=== PATIENT | female | born 1960 | race Caucasian/White ===

== ENCOUNTER → 2016-11-06 | Outpatient (CLI) | payer OTHER ==
[~2016-11-06] MED LIST: ASPI81TA28 PO; CALCTAB5 PO; FERR1TAB61; LEVO150T PO; NIFE60TA57 PO; VITA600C4
[2016-11-06 13:07] LABS: THYROID STIMULATING HORMONE 0.87 uIu/ml (0.300-4.500)
== END | disposition home or self-care (01) ==
LOC: C.LABPVFM 07:46
PROVIDERS: ATTEND Internal Medicine Endocrinology, Diabetes & Metabolism
DX: E03.9 Hypothyroidism, unspecified (principal)

== ENCOUNTER → 2017-02-24 | Outpatient (CLI) | payer OTHER ==
[2017-02-24 12:56] LABS: BLOOD UREA NITROGEN 14 mg/dl (7-18); BUN/CREATININE RATIO 18.2 (10-20); CALCIUM 9.1 mg/dl (8.5-10.1); CARBON DIOXIDE 28 mmol/L (21-32); CHLORIDE 106 mmol/L (98-107); CREATININE 0.74 mg/dl (0.60-1.20); GLUCOSE 85 mg/dl (70-99); POTASSIUM 3.4 mmol/L (3.5-5.1); SODIUM 143 mmol/L (136-145)
[2017-02-24 13:09] LABS: THYROID STIMULATING HORMONE 0.606 uIu/ml (0.300-4.500)
== END | disposition home or self-care (01) ==
LOC: C.LABPVFM 07:37
PROVIDERS: ATTEND Nurse Practitioner
DX: I10 Essential (primary) hypertension (principal); R20.2 Paresthesia of skin; E03.9 Hypothyroidism, unspecified

== ENCOUNTER → 2017-04-20 | Outpatient (CLI) | payer OTHER | END | disposition home or self-care (01) | LOC: C.LABPVFM 07:53 | PROVIDERS: ATTEND Internal Medicine Endocrinology, Diabetes & Metabolism | DX: E03.9 Hypothyroidism, unspecified (principal) ==

== ENCOUNTER → 2017-04-22 | Outpatient (CLI) | payer OTHER ==
[2017-04-22 12:49] LABS: CHOLESTEROL/HDL RATIO 2.8
== END | disposition home or self-care (01) ==
LOC: C.LABPVFM 07:45
PROVIDERS: ATTEND Nurse Practitioner
DX: R03.0 Elevated blood-pressure reading, without diagnosis of hypertension (principal); Z13.220 Encounter for screening for lipoid disorders

== ENCOUNTER 2017-11-23 08:07 | Emergency (ER) | payer OTHER ==
[~2017-11-23] VITALS: Ht 170.2 cm; Wt 75.2 kg
[~2017-11-23 08:07] MED LIST changes: -VITA600C4; +VITA600C4 PO
[2017-11-23 08:19] VITALS: TEMP 37.1; Ht 170.2 cm; Wt 75.2 kg
[2017-11-23 08:20] VITALS: O2SAT 98
[2017-11-23] MEDS ORDERED: SODIUM CHLORIDE 0.9% 1000ML 1,000 ML IV SCH (08:36)
[2017-11-23 08:51] LABS: BASO % 0.3 %; BASO ABS # 0.03 K/uL (0-0.2); EOS % 0.1 %; EOS ABS # 0.01 K/uL (0-0.5); HEMATOCRIT 43.5 % (37-47); HEMOGLOBIN 15.1 g/dL (12.0-16.0); IG# 0.01 K/uL (0.00-0.02); LYMPH % 8.5 %; LYMPH ABS # 0.83 K/uL (1.2-3.4); MEAN CELL VOLUME 85.3 fL (80-100); MEAN CORPUSCULAR HEMOGLOBIN 29.6 pg (25-34); MEAN CORPUSCULAR HGB CONC 34.7 g/dl (32-36); MEAN PLATELET VOLUME 10.7 fL (7.4-10.4); MONO % 3.6 %; MONO ABS # 0.35 K/uL (0.11-0.59); NEUT % 87.4 %; PLATELET COUNT 297 K/uL (130-400); RED CELL DISTRIBUTION WIDTH CV 13.2 % (11.5-14.5); RED CELL DISTRIBUTION WIDTH SD 41.1 fL (36.4-46.3); WHITE BLOOD COUNT 9.73 K/uL (4.8-10.8)
--- NOTE | 2017-11-23 08:59 | DIAGNOSTIC IMAGING REPORT ---
CT OF THE HEAD WITHOUT CONTRAST CLINICAL HISTORY: Stroke. Left sided facial droop and numbness. COMPARISON STUDY: No previous studies for comparison. CT DOSE: 537.48 mGy.cm TECHNIQUE: Helical axial images of the head were obtained without IV contrast. Automated exposure control was utilized for the study. A dose lowering technique was utilized adhering to the principles of ALARA. FINDINGS: No acute intracranial hemorrhage, midline shift or mass effect is present. Brain volume is normal. Ventricular system is normal. The basilar cisterns are patent. There are no extra-axial collections. There are scattered white matter hypodensities. There are no findings to suggest acute dural sinus thrombosis or acute territorial infarct. There are no significant calvarial abnormalities. Visualized portions of the sinuses and the mastoid air cells are clear. IMPRESSION: 1. No acute intracranial findings. 2. Scattered white matter hypodensities which are nonspecific but statistically reflect small vessel disease. Electronically signed by: Beau Izquierdo M.D. 11/23/2017 8:58 AM Dictated Date/Time: 11/23/2017 8:55 AM
[2017-11-23 09:02] LABS: BLOOD UREA NITROGEN 14 mg/dl (7-18); CALCIUM 9.7 mg/dl (8.5-10.1); CARBON DIOXIDE 28 mmol/L (21-32); CREATININE 0.98 mg/dl (0.60-1.20); GLUCOSE 182 mg/dl (70-99); SODIUM 138 mmol/L (136-145)
[2017-11-23 09:07] LABS: CKMB 3.3 ng/ml (0.5-3.6)
--- NOTE | 2017-11-23 09:08 | EMERGENCY ROOM VISIT NOTE ---
History Report prepared by Yoselin: Mervin Ty Under the Supervision of: Dr. Dami Dixon M.D. First contact with patient: 08:25 Chief Complaint: STROKE SYMPTOMS Stated Complaint: LT FACIAL NUMBNESS, DEOOP, HEADACHE. L EAR PAIN Nursing Triage Summary: pt reports left facial droop left ear throbbing bad headache last 2 days, eyes hurt, left side of tongue numb sx started last night at 2000. speech is clear able to ambulate to room b9 from triage History of Present Illness The patient is a 57 year old white female with a past medical history of HTN and hypothyroid who presents to the ED with a cc of constant neurologic symptoms beginning yesterday (about 12 hours ago). Symptoms include left facial numbness (including left side of tongue), left ear pain, and headache. Symptoms began with lip tingling followed by her headache. Negative cough, fevers, chills. No recent medication changes or antibiotic use. No history of Lyme Disease, stroke, migraines, or seizures. No drug or alcohol use. Eating and drinking normally. Urinating and defecating normally. Source of History: patient Onset: about 12 hours ago Position: head (left face) Quality: other (neurologic symptoms) Timing: constant Associated Symptoms: + headache, + numbness, No fevers, No chills, No cough Note: Symptoms: left ear pain Review of Systems See HPI for pertinent positives and negatives. A total of ten systems were reviewed and were otherwise negative. Past Medical & Surgical Medical Problems: (1) HTN (hypertension) (2) Hypothyroid Family History No pertinent family history stated. Social History Smoking Status: Former Smoker Current/Historical Medications Scheduled Artificial Tears Oph Oint (Lacri-Lube Sop Oph Oint), 0.25-0.5 INCH OP QID Aspirin (Aspirin Ec), 81 MG PO DAILY Calcium Carbonate (Calcium), 600 MG PO DAILY Cholecalciferol (Vitamin D), 1,000 UNITS PO DAILY Cyanocobalamin (Vitamin B12), 1,000 MCG PO DAILY Fish Oil (Theriot-3), 1 CAP PO DAILY Levothyroxine Sodium (Synthroid), 125 MCG PO DAILY Magnesium Oxide (Mag-Ox), 400 MG PO BID Nifedipine Ext Rel (Procardia Xl Ext Rel), 60 MG PO DAILY Potassium (Potassium), 99 MG PO DAILY Prednisone (Prednisone), 0 PO DAILY Triamterene/Hctz (Dyazide 37.5MG/25MG), 1 TAB PO DAILY Valacyclovir Hcl (Valtrex), 1 GM PO TID Vitamin E (Vitamin E), 600 UNIT PO DAILY Scheduled PRN Acyclovir (Zovirax), 200 MG PO UD PRN for COLD SORE Allergies Coded Allergies: No Known Allergies (Unverified , 11/23/17) Physical Exam Vital Signs Date Time Temp Pulse Resp B/P (MAP) Pulse Ox O2 Delivery O2 Flow Rate FiO2 11/23/17 11:10 87 20 132/77 98 11/23/17 09:59 97 20 139/89 95 Room Air 11/23/17 08:20 98 Room Air 11/23/17 08:19 37.1 101 18 173/86 99 Room Air 11/23/17 08:17 108 Physical Exam GENERAL: Awake, alert, well-appearing, NAD HENT: Normocephalic, atraumatic. Left TM is clear. EYES: Normal conjunctiva. Sclera non-icteric. Difficulty with closing left eye. PERRL. NECK: Supple. No nuchal rigidity. FROM. RESPIRATORY: CTAB, no rhonchi, wheezing, crackles CARDIAC: Tachycardic rate with a regular rhythm, no MRG ABDOMEN: Soft, NTND, BS+ MSK: No chest wall TTP, no LE edema NEURO: GCS 15, CN 2-12 intact with exception of left sided facial droop. Difficulty with closing left eye. Difficulty with raising left eyebrow. Moves all 4s on command SKIN: No rash or jaundice noted. Medical Decision & Procedures ER Provider Diagnostic Interpretation: Radiology results as stated below per my review and radiologist interpretation: CT OF THE HEAD WITHOUT CONTRAST FINDINGS: No acute intracranial hemorrhage, midline shift or mass effect is present. Brain volume is normal. Ventricular system is normal. The basilar cisterns are patent. There are no extra-axial collections. There are scattered white matter hypodensities. There are no findings to suggest acute dural sinus thrombosis or acute territorial infarct. There are no significant calvarial abnormalities. Visualized portions of the sinuses and the mastoid air cells are clear. IMPRESSION: 1. No acute intracranial findings. 2. Scattered white matter hypodensities which are nonspecific but statistically reflect small vessel disease. Electronically signed by: Beau Izquierdo M.D. 11/23/2017 8:58 AM Laboratory Results 11/23/17 07:30 Red Blood Count 5.10, Mean Corpuscular Volume 85.3, Mean Corpuscular Hemoglobin 29.6, Mean Corpuscular Hemoglobin Concent 34.7, Mean Platelet Volume 10.7, Neutrophils (%) (Auto) 87.4, Lymphocytes (%) (Auto) 8.5, Monocytes (%) (Auto) 3.6, Eosinophils (%) (Auto) 0.1, Basophils (%) (Auto) 0.3, Neutrophils # (Auto) 8.50, Lymphocytes # (Auto) 0.83, Monocytes # (Auto) 0.35, Eosinophils # (Auto) 0.01, Basophils # (Auto) 0.03 11/23/17 07:30 Test 11/23/17 07:30 11/23/17 08:48 White Blood Count 9.73 K/uL (4.8-10.8) Red Blood Count 5.10 M/uL (4.2-5.4) Hemoglobin 15.1 g/dL (12.0-16.0) Hematocrit 43.5 % (37-47) Mean Corpuscular Volume 85.3 fL (80-100) Mean Corpuscular Hemoglobin 29.6 pg (25-34) Mean Corpuscular Hemoglobin Concent 34.7 g/dl (32-36) Platelet Count 297 K/uL (130-400) Mean Platelet Volume 10.7 fL (7.4-10.4) Neutrophils (%) (Auto) 87.4 % Lymphocytes (%) (Auto) 8.5 % Monocytes (%) (Auto) 3.6 % Eosinophils (%) (Auto) 0.1 % Basophils (%) (Auto) 0.3 % Neutrophils # (Auto) 8.50 K/uL (1.4-6.5) Lymphocytes # (Auto) 0.83 K/uL (1.2-3.4) Monocytes # (Auto) 0.35 K/uL (0.11-0.59) Eosinophils # (Auto) 0.01 K/uL (0-0.5) Basophils # (Auto) 0.03 K/uL (0-0.2) RDW Standard Deviation 41.1 fL (36.4-46.3) RDW Coefficient of Variation 13.2 % (11.5-14.5) Immature Granulocyte % (Auto) 0.1 % Immature Granulocyte # (Auto) 0.01 K/uL (0.00-0.02) Prothrombin Time 10.5 SECONDS (9.0-12.0) Prothromb Time International Ratio 1.0 (0.9-1.1) Activated Partial Thromboplast Time 24.0 SECONDS (21.0-31.0) Partial Thromboplastin Ratio 0.9 Anion Gap 9.0 mmol/L (3-11) Est Creatinine Clear Calc Drug Dose 67.0 ml/min Estimated GFR () 74.2 Estimated GFR (Non- 64.0 BUN/Creatinine Ratio 14.0 (10-20) Calcium Level 9.7 mg/dl (8.5-10.1) Magnesium Level 1.9 mg/dl (1.8-2.4) Total Creatine Kinase 124 U/L (26-192) Creatine Kinase MB 3.3 ng/ml (0.5-3.6) Creatine Kinase MB Ratio 2.7 (0-3.0) Troponin I < 0.015 ng/ml (0-0.045) Lyme Disease IgG Antibody NEG (NEG) Lyme Disease IgM Antibody NEG (NEG) Bedside Prothrombin Time INR 1.1 (0.9-1.1) Bedside Glucose 184 mg/dl (70-90) Laboratory results reviewed by me Medications Administered Medications (Trade) Dose Ordered Sig/Mandie Route Start Time Stop Time Status Last Admin Dose Admin Sodium Chloride 500 ml @ 999 mls/hr Q31M STAT IV 11/23/17 09:43 11/23/17 10:13 DC 11/23/17 10:01 999 MLS/HR Prednisone (PredniSONE TAB) 50 mg NOW STAT PO 11/23/17 09:43 11/23/17 09:44 DC 11/23/17 10:01 50 MG Valacyclovir HCl (Valtrex Tab) 1,000 mg NOW ONCE PO 11/23/17 09:45 11/23/17 09:46 DC 11/23/17 10:01 1,000 MG Artificial Tears (Lacri-Lube Oph Oint) 1 appln NOW ONCE OP 11/23/17 09:45 11/23/17 09:46 DC 11/23/17 10:02 1 APPLN Potassium Chloride (Klor-Con M10) 40 meq STK-MED ONCE .ROUTE 11/23/17 10:26 11/23/17 10:27 DC 11/23/17 10:40 40 MEQ ECG Per My Interpretation Indication: other (neurologic symptoms) Rate (beats per minute): 99 Rhythm: normal sinus Findings: other (Normal intervals. Normal axis. No STS changes or TWI. ) ED Course 0830: The patient was evaluated in room B9. A complete history and physical exam was performed. 1025: I reevaluated the patient. Discussed results and discharge instructions: she verbalized understanding and agreement. The patient is ready for discharge. Medical Decision The patient is a 57 year old white female with a past medical history of HTN and hypothyroid who presents to the ED with a cc of constant neurologic symptoms beginning yesterday (about 12 hours ago). Symptoms include left facial numbness (including left side of tongue), left ear pain, and headache. Differential diagnosis: Etiologies such as metabolic, infection, hypo/hyperglycemia, electrolyte abnormalities, cardiac sources, intracerebral event, toxicologic, neurologic, as well as others were entertained. Prior records were reviewed. Patient was seen and evaluated the bedside. Patient was describing some left- sided facial symptoms. These began around 8 PM last evening. Patient also did associate some left-sided ear pain and headache. Patient does state her headache had been improving. Patient denies any prior history of seizure, migraine, or stroke or TIA. Patient exam does have some significant left-sided facial droop. She does not have sparing of the forehead. Given this I believe this is less likely stroke more likely a peripheral neuropathy or neuritis. Patient may have some sort of vestibular neuritis as well given her ear pain. Patient did have blood work completed, EKG, troponin, blood work and CT of the brain. Patient CT brain negative acute. Patient's EKG is unremarkable. Patient was given some IV fluids. She also did receive prednisone and valacyclovir for a likely Dudley's palsy. Less likely TIA or stroke given that the patient does not have forehead sparing. Patient was told of these findings. Patient was also told that she should continue to apply eye protection and Lacri-Lube and should follow-up with her PCP for further evaluation and treatment. Patient was given strict follow-up, discharge, and return precautions. All questions were answered. Patient was deemed suitable for outpatient follow-up at this time. Patient agreed with the plan of care and was safely discharged home. Of note thereafter I noticed that the patient was prescribed a prednisone taper is post prednisone 60 daily for 7 days. I did speak with our pharmacist to help rectify the situation so that the patient did obtain the correct medication with the correct dosage. Medication Reconcilliation Current Medication List: was personally reviewed by me Blood Pressure Screening Patient's blood pressure: Elevated blood pressure Blood pressure disposition: Referred to PCP Impression Primary Impression: Dudley's palsy Additional Impression: Hypokalemia Scribe Attestation The scribe's documentation has been prepared under my direction and personally reviewed by me in its entirety. I confirm that the note above accurately reflects all work, treatment, procedures, and medical decision making performed by me. Departure Information Dispostion Home / Self-Care Prescriptions Artificial Tears Oph Oint (Lacri-Lube Sop Oph Oint) Oint 0.25-0.5 INCH OP QID, #1 TUBE TO THE AFFECTED EYE UP TO QID PRN Prov: Dami Dixon M.D. 11/23/17 Valacyclovir Hcl (VALTREX) 1 Gm Tab 1 GM PO TID for 7 Days, #21 TAB Prov: Dami Dixon M.D. 11/23/17 Prednisone (Prednisone) 20 Mg Tab 0 PO DAILY for 7 Days, #21 TAB 3 TABS DAILY FOR 2 DAYS, THEN 2 TABS DAILY FOR 2 DAYS, THEN 1 TAB DAILY FOR 2 DAYS, THEN 1/2 TAB DAILY FOR 2 DAYS. Prov: Dami Dixon M.D. 11/23/17 Referrals Veronika Becerra C.R.N.P (PCP) Patient Instructions ED Lawson Palsy, Hypokalemia Az, [facility] Additional Instructions Please return to the emergency department if you have worsening or recurrent symptoms not amenable to at-home treatment. Please call for a follow-up appointment with her primary care physician. Please take your medications as prescribed. If you have other concerns and/or complaints please feel free to also call your primary care physician's office or return the ED for further evaluation, management, and treatment. You were found to have an elevated blood pressure today (>120 sytolic or >90 diastolic). Per medicare guidelines, you need to follow up with this blood pressure screening with your Primary Care Physician (PCP). For a new PCP call [phone]. You received narcotic or benzodiazepene medication while in the emergency room today. This is an addictive medication that may cause drowziness as well as constipation. Do not drive, operate heavy machinery, or drink alcohol under the influence of this medication. You may take 600 mg Ibuprofen every 6 hours as needed for pain with food for no more than 2 consecutive days. You may take tylenol 1000 mg every 6 hours as needed for pain. You may take motrin and tylenol separately or at the same time. Please take your steroids preferably in the morning and with food. This may cause upset stomach. Consider taking Pepcid or Zantac to help with this as well. Take your medications as prescribed. You have been examined and treated today on an emergency basis only. This is not a substitute for, or an effort to provide, complete comprehensive medical care. It is impossible to recognize and treat all injuries or illnesses in a single emergency department visit. It is therefore important that you follow up closely with [facility], your PCP, and/or your specialist(s). Call as soon as possible for an appointment. Thank you for your time and consideration. I look forward to speaking with you again soon. Please don't hesitate to call us if you have any questions. Stroke History Time Last Known Well 1999 (yesterday - 12 hours ago) Stroke t-PA Criteria Reviewed Does NOT meet criteria for t-PA Reason t-PA Not Given Treatment not indicated (outside of time window) Problem Qualifiers
[2017-11-23] MEDS ORDERED: OMEG10007 PO (09:33)
[2017-11-23] MEDS ORDERED: CYAN100020 PO (09:33)
[2017-11-23] MEDS ORDERED: POTA99TA PO (09:33)
[2017-11-23] MEDS ORDERED: ACYC200C22 PO (09:33)
[2017-11-23] MEDS ORDERED: MAGN400T6 PO (09:33)
[2017-11-23] MEDS ORDERED: LEVO125T72 PO (09:33)
[2017-11-23] MEDS ORDERED: CALC-393 PO (09:33)
[2017-11-23] MEDS ORDERED: CHOL100010 PO (09:33)
[2017-11-23] MEDS ORDERED: TRIA37.5 PO (09:33)
[2017-11-23] MEDS ORDERED: SODIUM CHLORIDE 0.9% 500ML 500 ML IV STA (09:43)
[2017-11-23] MEDS ORDERED: ARTIFICIAL TEARS OP OINT 3.5 GM TUBE OP ONE (09:45)
[2017-11-23] MEDS ORDERED: POTASSIUM CHLORIDE 20 MEQ TABCR PO STA (10:11)
[2017-11-23] MEDS ORDERED: PRED20TA PO ×2 (10:19→14:48)
[2017-11-23] MEDS ORDERED: ARTIOIN OP (10:19)
[2017-11-23] MEDS ORDERED: VALA1TAB31 PO (10:19)
[2017-11-23] MEDS ORDERED: POTASSIUM CHLORIDE 10 MEQ TABCR ONE (10:26)
[2017-11-23 11:10] VITALS: BP 132/77; PULSE 87; O2SAT 98
--- NOTE | 2017-11-23 14:47 | Pharmacy Progress Note ---
ED Pharmacist Progress Note Date of Service: Nov 23, 2017. Contacted pt per Dr Dixon' request to correct Prednisone dosing instructions. Pt is to take three 20mg tablets daily x 7 days. Pt repeated understanding of new directions.
== END 2017-11-23 11:10 | disposition home or self-care (01) ==
LOC: C.EDB 08:09
DX: G51.0 Bell's palsy (principal); E87.6 Hypokalemia; I10 Essential (primary) hypertension; E03.9 Hypothyroidism, unspecified; Z79.82 Long term (current) use of aspirin; Z87.891 Personal history of nicotine dependence

== ENCOUNTER → 2018-01-13 | Outpatient (CLI) | payer OTHER ==
[~2018-01-13] MED LIST changes: +ACYC200C22 PO; +ARTIOIN OP; +CALC-393 PO; -CALCTAB5 PO; +CHOL100010 PO; +CYAN100020 PO; -FERR1TAB61; +LEVO125T72 PO; -LEVO150T PO; +MAGN400T6 PO; +OMEG10007 PO; +POTA99TA PO; +PRED20TA PO; +TRIA37.5 PO
== END | disposition home or self-care (01) ==
LOC: C.LABPVFM 07:46
PROVIDERS: ATTEND Nurse Practitioner
DX: R73.09 Other abnormal glucose (principal)

== ENCOUNTER → 2018-04-12 | Outpatient (CLI) | payer OTHER | END | disposition home or self-care (01) | LOC: C.LABPVFM 11:12 | PROVIDERS: ATTEND Nurse Practitioner | DX: E03.9 Hypothyroidism, unspecified (principal) ==

== ENCOUNTER → 2018-04-19 | Outpatient (CLI) | payer OTHER ==
--- NOTE | 2018-04-19 16:41 | DIAGNOSTIC IMAGING REPORT ---
L-SPINE MIN 4 VIEWS ROUTINE HISTORY: Pain Back pain, chronicplease compare to previous xray COMPARISON: 09/19/2015 FINDINGS: Moderate scoliosis. Moderate degenerative intervertebral disc change. Mild reactive osteophytic changes throughout. No evidence for an acute compression deformity. Disc spaces are preserved. IMPRESSION: Mild scoliosis. Moderate degenerative disc change. No significant change compared to the prior study. The above report was generated using voice recognition software. It may contain grammatical, syntax or spelling errors. Electronically signed by: Saul Moran M.D. 04/19/2018 4:40 PM Dictated Date/Time: 04/19/2018 4:39 PM
[2018-04-19 17:56] LABS: BLOOD UREA NITROGEN 15 mg/dl (7-18); CALCIUM 8.5 mg/dl (8.5-10.1); CARBON DIOXIDE 27 mmol/L (21-32); CHOLESTEROL 153 mg/dl (0-200); CREATININE 0.74 mg/dl (0.60-1.20); GLUCOSE 85 mg/dl (70-99); LDL CHOLESTEROL CALCULATED 49 mg/dl; POTASSIUM 3.8 mmol/L (3.5-5.1); SODIUM 138 mmol/L (136-145)
== END | disposition home or self-care (01) ==
LOC: C.LABPVFM 16:20
PROVIDERS: ATTEND Nurse Practitioner
DX: M47.816 Spondylosis without myelopathy or radiculopathy, lumbar region (principal); I10 Essential (primary) hypertension